=== PATIENT | male | born 1960 | race Caucasian/White ===

== ENCOUNTER 2019-03-29 15:19 | Observation (INO) | payer SELFPAY ==
[~2019-03-29] VITALS: Ht 180.3 cm; Wt 77.6 kg
[~2019-03-29 15:19] MED LIST: HYDR-3165 PO
[2019-03-29] MEDS ORDERED: THIAMINE 200 MG/2 ML VIAL. IV ONE (15:35)
[2019-03-29] MEDS ORDERED: FOLIC ACID 5 MG/ML SYRINGE for ER IV ONE (15:36)
--- NOTE | 2019-03-29 15:39 | EKG ---
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
[2019-03-29] MEDS ORDERED: ASPIRIN 81 MG TAB.CHEW ONE (15:40)
--- NOTE | 2019-03-29 15:41 | PHYS DOC ---
Past History Past Medical History: Hypertension, Other Additional Past Medical Histor: [place] in his 20s secondary to cocaine Past Surgical History: No Surgical History Smoking: Cigarettes, Greater than 1 pack/day Alcohol Use: Heavy Drug Use: None Adult General Chief Complaint Chief Complaint: CHEST PAIN HPI HPI Patient is a 58-year-old male complaining of chest pain that started approximately an hour prior to arrival. Also right sided upper abdomen and chest discomfort on the right side as well. Worse with exertion as well as deep breath. Patient has recently been on an alcohol binge as well. That has been going on for the past 3 months. Last drink of alcohol was sometime last night. Patient feels that he is going through withdrawal from this as well. Chest discomfort is moderate to severe. No nausea or vomiting. No diarrhea. Discomfort is similar to when he had a heart attack due to cocaine use wall he was in his 20s. Patient denies using any drugs of abuse. His other history is significant for smoking as well as hypertension.[] Review of Systems Review of Systems Constitutional: Denies fever or chills [] Eyes: Denies change in visual acuity, redness, or eye pain [] HENT: Denies nasal congestion or sore throat [] Respiratory: Denies cough or shortness of breath [] Cardiovascular: No additional information not addressed in HPI [] GI: See history of present illness[] : Denies dysuria or hematuria [] Musculoskeletal: Denies back pain or joint pain [] Integument: Denies rash or skin lesions [] Neurologic: Denies headache, focal weakness or sensory changes [] Endocrine: Denies polyuria or polydipsia [] All other systems were reviewed and found to be within normal limits, except as documented in this note. Current Medications Current Medications Current Medications Medications (Trade) Dose Ordered Sig/Kirti Start Time Stop Time Status Last Admin Dose Admin Aspirin (Children'S Aspirin) 324 mg 1X ONCE 03/29/19 15:45 03/29/19 15:46 UNV Lorazepam (Ativan Inj) 2 mg 1X ONCE 03/29/19 15:45 03/29/19 15:46 UNV Multivitamins/ Minerals 10 ml/ Folic Acid 1 mg/ Thiamine HCl 100 mg/Magnesium Sulfate 2 gm/ Lactated Ringer's 1,015.2 ml @ 1,011.2 mls/hr 1X ONCE 03/29/19 15:45 03/29/19 16:45 UNV Allergies Allergies Allergies Coded Allergies Type Severity Reaction Last Updated Verified No Known Drug Allergies 03/22/16 No Physical Exam Physical Exam Constitutional: Well developed, well nourished, no acute distress, non-toxic appearance. [] HENT: Normocephalic, atraumatic, bilateral external ears normal, oropharynx moist, no oral exudates, nose normal. [] Eyes: PERRLA, EOMI, conjunctiva normal, no discharge. [] Neck: Normal range of motion, no tenderness, supple, no stridor. [] Cardiovascular:Heart rate is tachycardic with a regular rhythm, no murmur [] Lungs & Thorax: Bilateral breath sounds clear to auscultation [] Abdomen: Bowel sounds normal, soft, no tenderness, no rebound, no guarding, no rigidity, able to sit up and lie back without any difficulty. No Khoury's point tenderness, no McBurney's point tenderness. No masses, no pulsatile masses. [] Skin: Warm, dry, no erythema, no rash. [] Back: No tenderness, no CVA tenderness. [] Extremities: No tenderness, no cyanosis, no clubbing, ROM intact, no edema. [] Neurologic: Alert and oriented X 3, normal motor function, normal sensory function, no focal deficits noted. [] Psychologic: Affect anxious with increased word density, judgement normal, mood normal. [] EKG EKG EKG shows a sinus tachycardia at 128 bpm, left axis deviation, QTC 426 ms, no ST elevations. Interpreted by me at 1527[] Radiology/Procedures Radiology/Procedures PROCEDURE: PORTABLE CHEST 1V PORTABLE CHEST 1V History: Chest pain Comparison: None. Findings: Single view of the chest is submitted. There may be emphysema. There is no lobar consolidation, pleural fluid, pneumothorax. Heart size is within normal limits. There is a somewhat tortuous thoracic aorta. There is multilevel deformity of the left lateral ribs likely sequela of old trauma. Impression: 1. There is no significant infiltrate. There may be emphysema.[] Course & Med Decision Making Course & Med Decision Making Pertinent Labs and Imaging studies reviewed. (See chart for details) ED course: Patient arrived, was placed in bed, and tolerated exam well. Patient's heart rate improved with IV fluids. His tremor improved with Ativan. After the return of laboratory and imaging studies, these were discussed with the patient who voiced understanding. Consultation was made with the hospitalist who graciously accepted him for admission. He was admitted in improved condition. Cari decision makin-year-old male with a history of hypertension and pre vious coronary disease due to a cane abuse. Patient's initial set of cardiac enzymes are negative however, admitting him for chest pain rule out protocol. Patient also under going alcohol withdrawal. Being admitted to help with the initial stages of the withdrawal process. There is no evidence of pneumonia, pneumothorax, pulmonary embolism, nor significant acute electrolyte abnormality. No evidence of esophageal rupture nor dissecting thoracic aneurysm[] Dragon Disclaimer Dragon Disclaimer This electronic medical record was generated, in whole or in part, using a voice recognition dictation system. Departure Departure: Impression: Primary Impression: Chest pain, unspecified Additional Impression: Alcohol withdrawal Disposition: ADMITTED INPATIENT Admitting Physician: Jay Saeed Condition: IMPROVED Referrals: BRIE MAYFIELD (PCP) Problem Qualifiers Primary Impression: Chest pain, unspecified Chest pain type: unspecified Qualified Codes: R07.9 - Chest pain, unspecified Additional Impression: Alcohol withdrawal Complication of substance-induced condition: with unspecified complication Qualified Codes: F10.239 - Alcohol dependence with withdrawal, unspecified PAU MARIE DO Mar 29, 2019 15:41
[2019-03-29] MEDS ORDERED: IV NORMAL SALINE 1,000ML 1,000 ML IV ONE (15:45)
[2019-03-29] MEDS ORDERED: ASPIRIN 81 MG TAB.CHEW PO ONE (15:45)
[2019-03-29] MEDS ORDERED: MVI, ADULT NO.4 WITH VIT K 10 ML, FOLIC ACID SYRINGE for ER 1 MG, THIAMINE INJ 100 MG, ... IV ONE ×5 (15:45)
[2019-03-29 15:55] LABS: BASO % 0 % (0-3); EOS % 0 % (0-3); HEMOGLOBIN 16.1 g/dL (13.0-17.5); LYMPH # 1.6 x10^3/uL (1.0-4.8); LYMPH % 16 % (24-48); MEAN CORPUSCULAR HEMOGLOBIN 33 pg (25-35); MEAN CORPUSCULAR HGB CONC 34 g/dL (31-37); MEAN CORPUSCULAR VOLUME 97 fL (79-100); MONO # 0.6 x10^3/uL (0.0-1.1); MONO % 7 % (0-9); NEUT # 7.4 x10^3uL (1.8-7.7); NEUT % 77 % (31-73); PLATELET COUNT 186 x10^3/uL (140-400); RED BLOOD COUNT 4.93 x10^6/uL (4.30-5.70); RED CELL DISTRIBUTION WIDTH 15.6 % (11.5-14.5); WHITE BLOOD COUNT 9.7 x10^3/uL (4.0-11.0)
--- NOTE | 2019-03-29 16:02 | RAD ---
PORTABLE CHEST 1V History: Chest pain Comparison: None. Findings: Single view of the chest is submitted. There may be emphysema. There is no lobar consolidation, pleural fluid, pneumothorax. Heart size is within normal limits. There is a somewhat tortuous thoracic aorta. There is multilevel deformity of the left lateral ribs likely sequela of old trauma. Impression: 1. There is no significant infiltrate. There may be emphysema. Electronically signed by: Usman Hampton MD (03/29/2019 3:59 PM) [facility] [place]
[2019-03-29 16:14] LABS: ALBUMIN 4.3 g/dL (3.4-5.0); CREATININE 1.1 mg/dL (0.7-1.3); GFR 68.8; POTASSIUM 4.3 mmol/L (3.5-5.1); TOTAL BILIRUBIN 1.4 mg/dL (0.2-1.0); TOTAL PROTEIN 8.6 g/dL (6.4-8.2)
[2019-03-29 16:22] LABS: HYPERSEGS PRESENT; PLATELET CLUMP PRESENT; PLT ESTIMATE ADEQUATE (ADEQUATE)
[2019-03-29 16:51] LABS: BARBITURATES NEG (NEG); BENZODIAZEPINES NEG (NEG); CANNABINOIDS NEG (NEG); COCAINE NEG (NEG); METHADONE NEG (NEG); OPIATES NEG (NEG); PHENCYCLIDINE NEG (NEG)
[2019-03-29 16:55] LABS: BILIRUBIN,URINE NEG (NEG); CLARITY,URINE CLEAR; COLOR,URINE YELLOW; GLUCOSE,URINE NEG (NEG); NITRITE,URINE NEG (NEG); UROBILINOGEN,URINE 1 mg/dL (0.2 mg/dL)
[2019-03-29 16:56] LABS: BACTERIA,URINE 0 /HPF (0-FEW); GRANULAR CASTS,URINE OCC /HPF; HYALINE CASTS, URINE OCC /HPF; RBC,URINE OCC /HPF (0-2); SQUAMOUS EPITHELIAL CELL,UR OCC /LPF; WBC,URINE OCC /HPF (0-4)
[2019-03-29 16:57] LABS: AMPHETAMINE/METHAMPHETAMINE NEG (NEG)
[2019-03-29] MEDS ORDERED: ACETAMINOPHEN 325 MG TABLET PO PRN (17:45)
[2019-03-29] MEDS ORDERED: NITROGLYCERIN SUBLINGUAL 0.4 MG BOTTLE OF 25. SL PRN (17:45)
[2019-03-29] MEDS ORDERED: chlordiazePOXIDE HCL 25 MG CAPSULE PO PRN ×2 (17:45)
[2019-03-29] MEDS ORDERED: ONDANSETRON PF 4 MG/2 ML VIAL. IV PRN (17:45)
[2019-03-29 18:50] VITALS: BP 157/96
[2019-03-29] MEDS ORDERED: diphenhydrAMINE 50 MG/ML VIAL IVP PRN (19:30)
[2019-03-29] MEDS ORDERED: HALOPERIDOL LACT 5 MG/ML VIAL. IM PRN (19:30)
[2019-03-29] MEDS ORDERED: cloNIDine HCL 0.1 MG TABLET PO PRN (19:30)
[2019-03-29] MEDS: IV NORMAL SALINE 1,000ML 1,000 ML IV SCH (19:57)
[2019-03-29] MEDS ORDERED: LISI-334 PO (21:18)
[2019-03-29 22:23] VITALS: BP 169/90
[2019-03-30] MEDS: IV NORMAL SALINE 1,000ML 1,000 ML IV SCH (03:56)
[2019-03-30 05:11] VITALS: BP 167/98
--- NOTE | 2019-03-30 10:51 | CONS ---
DATE OF CONSULTATION: REASON FOR CONSULTATION: Chest pain. CONSULTING PHYSICIAN: Dr. Saeed. HISTORY OF PRESENT ILLNESS: The patient is an unfortunate 58-year-old man with history of alcohol abuse, who presents to the hospital in the setting of various complaints including abdominal pain, chest pain and anxiety. Cardiology was asked to evaluate him for his chest pain. He has alcohol abuse in the records dating all the way back to 2016. Previous EKGs have been unremarkable. Upon arrival to the hospital, his EKG was unremarkable and he was slightly hypertensive. He also felt that he may be withdrawing. He was admitted for further evaluation and treatment. In speaking with him today, he was quite upset that I had woken him up from his sleep to examine him. He denies any exertional angina, but does have chronic dyspnea in the setting of tobacco abuse and alcohol abuse. He denies any syncope or palpitations. He stated that he rested well yesterday and actually wants to go home today. PAST MEDICAL HISTORY: Notable for tobacco abuse and alcohol abuse. He also reports he has hypertension and takes lisinopril. ALLERGIES: No known drug allergies. CURRENT CARDIOVASCULAR MEDICATIONS: He is on clonidine as needed for possible withdrawal symptoms. REVIEW OF SYSTEMS: Negative unless otherwise mentioned above in HPI. PHYSICAL EXAMINATION: VITAL SIGNS: Afebrile, pulse 93, respirations 20, blood pressure 166/104, 98% on room air. GENERAL: He is quite erratic and upset. HEAD AND NECK: Grossly normal. EXTREMITIES: No significant lower extremity edema appreciated. 2+ radial pulses. DIAGNOSTIC STUDIES: INR 0.9. Creatinine is 1.1 and troponin 0. Hemoglobin 16.1 and platelet count 186. Chest x-ray is grossly unremarkable. IMPRESSION: At this present time, this appears to be noncardiac chest pain. RECOMMENDATIONS: His cardiac enzymes, EKG are unremarkable. He may be experiencing withdrawal symptoms. Treatment as per primary physician. No further cardiac testing necessary at this time. Discussed smoking and alcohol cessation. Poor long-term prognosis unless he quits alcohol use. Thank you for this consultation. HUYEN MCKEON MD DR: JULIANNA/brandee JOB#: [id number] / [id number] MTDD
[2019-03-30] MEDS ORDERED: LORazepam 1 MG TABLET PO ONE (11:00)
--- NOTE | 2019-03-30 16:31 | HP ---
ADMIT DATE: 03/29/2019 HISTORY OF PRESENT ILLNESS: A 58-year-old gentleman, who came in through the Emergency Room, apparently he has been complaining of right-sided upper abdominal and chest pain. The patient also was worse when he takes a deep breath. The patient has been drinking heavily alcohol, last drink of alcohol sometime within the last night. The patient feels like he is going through withdrawal, chest pain was [id number]. He was admitted for rule out [place] protocol as well as detox from alcohol intoxication. The patient denied any nausea, vomiting or diaphoresis. PAST MEDICAL HISTORY: He has had previous history of heart attack, chest surgery, chest tube, ankle fracture, severe alcohol abuse. He claims he drinks 30 beers a day, tobacco abuse, smoking, smoking exposure as well. FAMILY HISTORY: Mother has cancer. ALLERGIES: No known drug allergies. SOCIAL HISTORY: The patient drinks as noted 30 bottles of beer a day, possible, and a pack of cigarettes a day for the last 40-50 years. HOME MEDICATIONS: Lisinopril 20 mg a day. The patient is a full code. REVIEW OF SYSTEMS: The patient denies any headaches, visual changes, blurred vision, double vision. Denies any melena, hematochezia or hematemesis. Neurologically baseline, stable except for his chest discomfort, which probably is reflux. PHYSICAL EXAMINATION: GENERAL: This is a white male, looking much older than stated age. VITAL SIGNS: Blood pressure 169/90, respiratory rate 20, pulse 88, afebrile. HEENT: The patient's head was atraumatic, normocephalic. Eyes: PERRLA without jaundice. Mouth and throat were normal. NECK: Supple, without JVD, carotid bruits or thyromegaly. LUNGS: Diminished throughout, poor movement of air. CARDIOVASCULAR: Regular sinus rhythm, S1, S2, without murmur, rub, thrill or extra heart sound. ABDOMEN: Soft, diffuse tenderness in the epigastric area. No rebound or guarding. Positive bowel sounds. No hepatosplenomegaly was noted. EXTREMITIES: The patient otherwise had no clubbing, cyanosis or edema. NEUROLOGIC: The patient was alert and oriented, baseline, somewhat ____, slow to talk. Neurologically intact. LABORATORY DATA: Sodium 136, potassium 4.3, BUN and creatinine of 15 and 1.0, total bilirubin elevated at 1.4, ALT 140, AST 95. Troponin negative. Ammonia normal. Lipase normal. TSH normal. CBC basically all within normal limits. The patient otherwise continued to be monitored carefully. The patient will be seen by Dr. Perales, Cardiology and make further evaluation. IMPRESSION: Alcoholism, anemia of chronic disease, hyperbilirubinemia, elevated liver enzymes, tobacco dependence. The patient demanded to be discharged against medical advice. FARHAD REEVES MD DR: PAULINE/brandee JOB#: [id number] / [id number]
[2019-04-03] MEDS ORDERED: FOLIC ACID 1 MG TABLET PO SCH (09:00)
[2019-04-03] MEDS ORDERED: THIAMINE 100 MG TABLET. PO SCH (09:00)
[2019-04-03] MEDS ORDERED: MULTIVITAMIN with MINERAL TABLET. PO SCH (09:00)
--- NOTE | 2019-04-04 08:54 | EKG ---
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
== END 2019-03-30 11:12 | disposition left against medical advice (07) ==
LOC: ER 15:19 → 1 SOUTH 18:32
PROVIDERS: ADMIT Family Medicine; ATTEND Family Medicine
DX: R07.89 Other chest pain (principal); I10 Essential (primary) hypertension; I25.10 Atherosclerotic heart disease of native coronary artery without angina pectoris; F41.9 Anxiety disorder, unspecified; I25.2 Old myocardial infarction; D63.8 Anemia in other chronic diseases classified elsewhere; R74.8 Abnormal levels of other serum enzymes; F10.239 Alcohol dependence with withdrawal, unspecified; E80.6 Other disorders of bilirubin metabolism; F17.210 Nicotine dependence, cigarettes, uncomplicated; Z79.899 Other long term (current) drug therapy; Z71.6 Tobacco abuse counseling
CPT/HCPCS: 36415; 71045; 80053; 80307; 81001; 82140; 83690; 83735; 83880; 84443; 84484; 85025; 85610; 85730; 93005; 96365; 96366; 96375; 96376; 99284; 99406; G0378; G0480; J1200; J2060; J2405; G0379; J7030

== ENCOUNTER 2019-05-06 08:34 | Inpatient (IN) | payer SELFPAY ==
[2019-05-06] VITALS (10 sets, daily range): BP systolic 125–148; BP diastolic 84–101
[~2019-05-06] VITALS: Ht 182.9 cm; Wt 80.5 kg
[~2019-05-06 08:34] MED LIST changes: +LISI-334 PO
[2019-05-06 09:20] LABS: BASO % 1 % (0-3); EOS % 0 % (0-3); HEMATOCRIT 44.6 % (39.0-53.0); HEMOGLOBIN 15.2 g/dL (13.0-17.5); LYMPH # 0.4 x10^3/uL (1.0-4.8); LYMPH % 5 % (24-48); MEAN CORPUSCULAR HEMOGLOBIN 35 pg (25-35); MEAN CORPUSCULAR HGB CONC 34 g/dL (31-37); MEAN CORPUSCULAR VOLUME 101 fL (79-100); MONO % 12 % (0-9); NEUT # 6.8 x10^3uL (1.8-7.7); NEUT % 83 % (31-73); PLATELET COUNT 175 x10^3/uL (140-400); RED BLOOD COUNT 4.41 x10^6/uL (4.30-5.70); RED CELL DISTRIBUTION WIDTH 16.7 % (11.5-14.5); WHITE BLOOD COUNT 8.2 x10^3/uL (4.0-11.0)
[2019-05-06 09:27] LABS: CALCIUM 9.3 mg/dL (8.5-10.1); CREATININE 1.4 mg/dL (0.7-1.3); GFR 52.1; POTASSIUM 4.2 mmol/L (3.5-5.1)
[2019-05-06] MEDS ORDERED: MVI, ADULT NO.4 WITH VIT K 10 ML, FOLIC ACID INJ 1 MG, THIAMINE INJ 100 MG in IV NORMAL... IV ONE ×4 (09:30)
--- NOTE | 2019-05-06 09:30 | PHYS DOC ---
Past History Past Medical History: Hypertension, Other Additional Past Medical Histor: [place] in his 20s secondary to cocaine Past Surgical History: Other Additional Past Surgical Histo: BILATERAL LOWER LEGS Smoking: Cigarettes, Greater than 1 pack/day Alcohol Use: Heavy Drug Use: None Adult General Chief Complaint Chief Complaint: SUICIDAL IDEATION HPI HPI 58-year-old male presents with concern for alcohol withdrawal and suicidal ideation. The patient was recently in this facility and signed out AMA. He had some alcohol about 12 hours ago. Today he is having tremors in his upper extremities. He was headed to drink more alcohol realizes that he needs to stop drinking alcohol and get fully detoxed and into a treatment program. The patient has been having suicidal thoughts about being hopeless and worthless. He is thought about shooting himself with a pistol. He tells me that he has access to a pistol he does not have on his person at this time. The patient has had an alcohol withdrawal seizure many years ago. He is concerned about these tremors and worsening withdrawal symptoms. He lives alone. He has no other complaints this time. Review of Systems Review of Systems Constitutional: Denies fever or chills [] Eyes: Denies change in visual acuity, redness, or eye pain [] HENT: Denies nasal congestion or sore throat [] Respiratory: Denies cough or shortness of breath [] Cardiovascular: No additional information not addressed in HPI [] GI: Denies abdominal pain, nausea, vomiting, bloody stools or diarrhea [] : Denies dysuria or hematuria [] Musculoskeletal: Denies back pain or joint pain [] Integument: Denies rash or skin lesions [] Neurologic: Upper extremity tremors. Denies headache, focal weakness or sensory changes [] Endocrine: Denies polyuria or polydipsia [] All other systems were reviewed and found to be within normal limits, except as documented in this note. Current Medications Current Medications Current Medications Medications (Trade) Dose Ordered Sig/Kirti Start Time Stop Time Status Last Admin Dose Admin Lorazepam (Ativan Inj) 2 mg 1X ONCE 05/06/19 09:30 05/06/19 09:31 UNV Multivitamins/ Minerals 10 ml/ Folic Acid 1 mg/ Thiamine HCl 100 mg/Sodium Chloride 1,011.3 ml @ 1,000.187 mls/hr 1X ONCE 1/7/20 09:30 05/06/19 10:30 UNV Allergies Allergies Allergies Coded Allergies Type Severity Reaction Last Updated Verified No Known Drug Allergies 03/22/16 No Physical Exam Physical Exam Constitutional: Well developed, well nourished, mild acute distress, non-toxic appearance. [] HENT: Normocephalic, atraumatic, bilateral external ears normal, oropharynx moist, no oral exudates, nose normal. [] Eyes: PERRLA, EOMI, conjunctiva normal, no discharge. [] Neck: Normal range of motion, no tenderness, supple, no stridor. [] Cardiovascular: Heart rate 123, regular rhythm, no murmur [] Lungs & Thorax: Bilateral breath sounds clear to auscultation [] Abdomen: Bowel sounds normal, soft, no tenderness, no masses, no pulsatile masses. [] Skin: Warm, dry, no erythema, no rash. [] Back: No tenderness, no CVA tenderness. [] Extremities: No tenderness, no cyanosis, no clubbing, ROM intact, no edema. [] Neurologic: Bilateral upper extremity tremors, involuntary. Alert and oriented X 3, normal motor function, normal sensory function, no focal deficits noted. [] Psychologic: Affect normal, judgement normal, mood anxious. [] Current Patient Data Vital Signs Vital Signs Date Time Temp Pulse Resp B/P (MAP) Pulse Ox O2 Delivery O2 Flow Rate FiO2 05/06/19 08:39 98.6 118 22 95 Room Air Lab Results Laboratory Tests Test 05/06/19 08:57 White Blood Count 8.2 x10^3/uL (4.0-11.0) Red Blood Count 4.41 x10^6/uL (4.30-5.70) Hemoglobin 15.2 g/dL (13.0-17.5) Hematocrit 44.6 % (39.0-53.0) Mean Corpuscular Volume 101 fL (79-100) H Mean Corpuscular Hemoglobin 35 pg (25-35) Mean Corpuscular Hemoglobin Concent 34 g/dL (31-37) Red Cell Distribution Width 16.7 % (11.5-14.5) H Platelet Count 175 x10^3/uL (140-400) Neutrophils (%) (Auto) 83 % (31-73) H Lymphocytes (%) (Auto) 5 % (24-48) L Monocytes (%) (Auto) 12 % (0-9) H Eosinophils (%) (Auto) 0 % (0-3) Basophils (%) (Auto) 1 % (0-3) Neutrophils # (Auto) 6.8 x10^3uL (1.8-7.7) Lymphocytes # (Auto) 0.4 x10^3/uL (1.0-4.8) L Monocytes # (Auto) 1.0 x10^3/uL (0.0-1.1) Eosinophils # (Auto) 0.0 x10^3/uL (0.0-0.7) Basophils # (Auto) 0.0 x10^3/uL (0.0-0.2) EKG EKG [] Radiology/Procedures Radiology/Procedures [] Course & Med Decision Making Course & Med Decision Making Pertinent Labs and Imaging studies reviewed. (See chart for details) The patient's labs are unremarkable. His alcohol is less than 10. He was given 2 mg of Ativan IV followed by 25 mg of Librium by mouth for his withdrawal symptoms. He has been resting comfortably. His tremors have stopped. I spoke with Dr. Cuadra about the patient and he has accepted him for admission for ma nagement of his withdrawal prior to evaluation for a rehabilitation facility. The patient is in agreement with this plan. [] Dragon Disclaimer Dragon Disclaimer This electronic medical record was generated, in whole or in part, using a voice recognition dictation system. Departure Departure: Impression: Primary Impression: Withdrawal symptoms, alcohol Additional Impression: Suicidal ideation Disposition: ADMITTED INPATIENT Admitting Physician: Agnieszka Cuadra Condition: STABLE Referrals: BRIE MAYFIELD (PCP) Problem Qualifiers TORI CHAMPAGNE DO May 06, 2019 09:29
[2019-05-06 09:33] LABS: ALBUMIN 4.6 g/dL (3.4-5.0); ALBUMIN/GLOBULIN RATIO 1.2 (1.0-1.7); TOTAL BILIRUBIN 1.3 mg/dL (0.2-1.0); TOTAL PROTEIN 8.4 g/dL (6.4-8.2)
[2019-05-06] MEDS ORDERED: ONDANSETRON PF 4 MG/2 ML VIAL. IV PRN ×2 (10:45→14:00)
[2019-05-06] MEDS ORDERED: chlordiazePOXIDE HCL 25 MG CAPSULE PO PRN (10:45)
[2019-05-06] MEDS ORDERED: chlordiazePOXIDE HCL 25 MG CAPSULE PO ONE (11:00)
[2019-05-06] MEDS: IV NORMAL SALINE 1,000ML 1,000 ML IV SCH (14:12)
[2019-05-06] MEDS ORDERED: cloNIDine HCL 0.1 MG TABLET PO PRN (14:45)
[2019-05-06] MEDS: NICOTINE 21MG PATCH. TD SCH (15:03)
[2019-05-06] MEDS: chlordiazePOXIDE HCL 25 MG CAPSULE PO PRN (17:55)
[2019-05-07] VITALS (22 sets, daily range): BP systolic 107–165; BP diastolic 59–130
[2019-05-07] MEDS: IV NORMAL SALINE 1,000ML 1,000 ML IV SCH ×2 (00:04→17:42)
--- NOTE | 2019-05-07 00:54 | EKG ---
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
[2019-05-07] MEDS: chlordiazePOXIDE HCL 25 MG CAPSULE PO PRN ×5 (01:05→20:57)
[2019-05-07] MEDS: MVI, ADULT NO.4 WITH VIT K 10 ML, THIAMINE INJ 100 MG, FOLIC ACID INJ 1 MG in IV NORMAL... IV SCH ×4 (09:17)
[2019-05-07] MEDS: NICOTINE 21MG PATCH. TD SCH (09:17)
[2019-05-07 10:50] LABS: BARBITURATES NEG (NEG); BENZODIAZEPINES POS (NEG); CANNABINOIDS NEG (NEG); COCAINE NEG (NEG); METHADONE NEG (NEG); OPIATES NEG (NEG); PHENCYCLIDINE NEG (NEG)
[2019-05-07 10:51] LABS: AMPHETAMINE/METHAMPHETAMINE NEG (NEG)
[2019-05-07 12:11] LABS: BACTERIA,URINE 0 /HPF (0-FEW); BILIRUBIN,URINE NEG (NEG); CLARITY,URINE HAZY; COLOR,URINE YELLOW; GLUCOSE,URINE NEG (NEG); NITRITE,URINE NEG (NEG); SQUAMOUS EPITHELIAL CELL,UR FEW /LPF
[2019-05-07 12:52] LABS: BASO % 1 % (0-3); EOS # 0.1 x10^3/uL (0.0-0.7); EOS % 2 % (0-3); HEMATOCRIT 39.4 % (39.0-53.0); HEMOGLOBIN 13.3 g/dL (13.0-17.5); LYMPH # 0.9 x10^3/uL (1.0-4.8); LYMPH % 14 % (24-48); MEAN CORPUSCULAR HEMOGLOBIN 34 pg (25-35); MEAN CORPUSCULAR HGB CONC 34 g/dL (31-37); MEAN CORPUSCULAR VOLUME 102 fL (79-100); MONO # 0.6 x10^3/uL (0.0-1.1); MONO % 10 % (0-9); NEUT # 4.5 x10^3uL (1.8-7.7); NEUT % 74 % (31-73); PLATELET COUNT 142 x10^3/uL (140-400); RED BLOOD COUNT 3.86 x10^6/uL (4.30-5.70); RED CELL DISTRIBUTION WIDTH 16.1 % (11.5-14.5); WHITE BLOOD COUNT 6.1 x10^3/uL (4.0-11.0)
[2019-05-07 13:08] LABS: ALBUMIN 3.6 g/dL (3.4-5.0); ALBUMIN/GLOBULIN RATIO 1.1 (1.0-1.7); CALCIUM 8.6 mg/dL (8.5-10.1); GFR 76.7; POTASSIUM 4.2 mmol/L (3.5-5.1); TOTAL BILIRUBIN 0.8 mg/dL (0.2-1.0); TOTAL PROTEIN 6.9 g/dL (6.4-8.2)
[2019-05-07] MEDS ORDERED: ZIPRASIDONE IM 20 MG VIAL. IM PRN (15:30)
[2019-05-07] MEDS: HALOPERIDOL LACT 5 MG/ML VIAL. IVP PRN (16:09)
--- NOTE | 2019-05-07 16:41 | HP ---
ADMIT DATE: HISTORY OF PRESENT ILLNESS: The patient is a 58-year-old male patient who came to the Emergency Room with concern for alcohol withdrawal and suicidal ideation. The patient was recently in this facility and signed out against medical advice. He had some alcohol about 12 hours ago and when he arrived, he had tremors in his upper extremities. He was headed to drink more alcohol and realized that he needs to stop drinking alcohol and get fully detoxified into treatment program. He has been having suicidal thoughts being ____. He thought about shooting himself with a pistol. He tells me that he has access to ____ at this time. He had alcohol withdrawal with seizures many years ago. He is concerned about these tremors and worsening withdrawal symptoms. He lives alone. He was evaluated in the Emergency Room and his lab work showed some abnormal liver enzymes and slightly dehydration hyponatremia and he was treated with IV fluid and started on banana bag and alcohol withdrawal, admitted for 1:1 observation. PAST MEDICAL HISTORY: Significant for coronary artery disease, status post myocardial infarction. Has chest tube. Severe alcohol abuse, tobacco abuse. FAMILY HISTORY: His mother has cancer. SOCIAL HISTORY: The patient drinks as he stated 30 bottles of beer a day, possible a pack of cigarettes a day for the last 40-50 minutes. MEDICATIONS: He is on lisinopril 20 mg once a day. ALLERGIES: He has no known drug allergies. PHYSICAL EXAMINATION: GENERAL: On arrival to the Emergency Room, he was well-developed, well-nourished, in mild acute distress. There is no pallor, jaundice, cyanosis or thyromegaly. No jugular venous distention. No limb edema. VITAL SIGNS: His heart rate was 118, blood pressure was 183/115, temperature was 98.6, respiratory rate was 22 and oxygen saturation was 95%. HEAD, EYES, EARS, NOSE AND THROAT: Showed that he is normocephalic, atraumatic. NECK: Supple. HEART: Showed normal first and second heart sounds. No gallop or murmur. CHEST: Clear to auscultation. No crepitation or rhonchi. ABDOMEN: Distended, soft, nontender. NEUROLOGIC: He apparently was very tremulous, alert, oriented without any obvious lateralizing sign. LABORATORY DATA: In the Emergency Room, he has had lab work including a CBC with a white cell count of 8200, hemoglobin 15, hematocrit 44, MCV 101 and platelet count 175,000. His chemistry showed a serum sodium 133, potassium 4.2, chloride 98, bicarbonate 24, anion gap of 11, BUN 23, creatinine 1.4, estimated GFR was 52 mL per minute, his glucose 177, calcium was 9.3. Total bilirubin, AST and ALT were elevated. Alkaline phosphatase was normal. His total protein was 8.4, albumin was 4.6. His urinalysis was essentially unremarkable. The urine was yellow, hazy with a pH of 6.5, specific gravity of 1.020. The urine was negative for protein, glucose, ketones, blood, nitrite and leukocyte esterase, 3-5 rbc's, 11-20 wbc's, and no bacteria. His toxic screen was positive for benzodiazepine. His blood alcohol level was less than 2 mg. In summary, this is a 58-year-old male patient who was admitted with alcohol withdrawal symptoms as well as suicidal ideation. The plan is to continue with alcohol withdrawal protocol. We have consulted the [facility] for admission to alcohol detoxification program. LINDSAY AN MD DR: MARLA/brandee JOB#: [id number] / [id number]
[2019-05-08] VITALS (11 sets, daily range): BP systolic 115–146; BP diastolic 69–91
[2019-05-08] MEDS: chlordiazePOXIDE HCL 25 MG CAPSULE PO PRN ×2 (00:55→03:44)
[2019-05-08] MEDS: HALOPERIDOL LACT 5 MG/ML VIAL. IVP PRN ×2 (01:29→07:39)
--- NOTE | 2019-05-08 02:00 | PN ---
DATE: 05/07/2019 SUBJECTIVE: The patient continued to be agitated, continued to be tremulous, very restless, disrespectful to the staffing nurse and today his parents also, threatening to drive to go home, driving his own, though he is very unsteady on his feet. I had a lengthy discussion with him that he will never be able to drive on his own from here and that the [facility] has already made arrangements for him to be admitted to [facility] and that he came to us asking for help and we are willing to help him as long as he is willing to help himself. PHYSICAL EXAMINATION: GENERAL: When I examined him this afternoon, he looked well and was clearly in no apparent respiratory distress. No pallor, jaundice, cyanosis or thyromegaly. No jugular venous distension. No lower limb edema. VITAL SIGNS: His heart rate was 86, blood pressure 138/90, temperature 98.6, respiratory rate 20, and oxygen saturation was 96%. The rest of clinical exam is stable. PLAN: To continue with alcohol withdrawal protocol. Hopefully, will be more stable tomorrow and we can transfer him to [facility] to continue the process of rehabilitation there. LINDSAY AN MD DR: MARLA/brandee JOB#: [id number] / [id number]
[2019-05-08] MEDS: IV NORMAL SALINE 1,000ML 1,000 ML IV SCH (05:10)
[2019-05-08] MEDS: MVI, ADULT NO.4 WITH VIT K 10 ML, THIAMINE INJ 100 MG, FOLIC ACID INJ 1 MG in IV NORMAL... IV SCH ×4 (07:51)
[2019-05-08 08:32] LABS: ALBUMIN 3.3 g/dL (3.4-5.0); ALBUMIN/GLOBULIN RATIO 1.1 (1.0-1.7); CALCIUM 8.3 mg/dL (8.5-10.1); CREATININE 0.9 mg/dL (0.7-1.3); GFR 86.7; POTASSIUM 3.8 mmol/L (3.5-5.1); TOTAL BILIRUBIN 0.6 mg/dL (0.2-1.0); TOTAL PROTEIN 6.4 g/dL (6.4-8.2)
== END 2019-05-08 10:50 | disposition left against medical advice (07) | DRG 641 ==
LOC: ER 08:34 → ICU 13:26
PROVIDERS: ADMIT Internal Medicine; ATTEND Internal Medicine
DX: E87.1 Hypo-osmolality and hyponatremia (principal); R45.851 Suicidal ideations; E86.0 Dehydration; I10 Essential (primary) hypertension; I25.10 Atherosclerotic heart disease of native coronary artery without angina pectoris; I25.2 Old myocardial infarction; Z80.9 Family history of malignant neoplasm, unspecified; Z87.891 Personal history of nicotine dependence; F10.20 Alcohol dependence, uncomplicated; Y90.0 Blood alcohol level of less than 20 mg/100 ml; Z53.29 Procedure and treatment not carried out because of patient's decision for other reasons
CPT/HCPCS: 36415; 80053; 80307; 81001; 83735; 84484; 85025; 87086; 93005; 96365; 96366; 96375; G0480; J1630; J2060; 99285-25; J7030

== ENCOUNTER 2019-05-09 12:15 | Emergency (ER) | payer SELFPAY ==
[~2019-05-09] VITALS: Ht 182.9 cm; Wt 80.3 kg
--- NOTE | 2019-05-09 12:32 | PHYS DOC ---
Past History Past Medical History: Hypertension, Other Additional Past Medical Histor: [place] in his 20s secondary to cocaine Past Surgical History: Other Additional Past Surgical Histo: BILATERAL LOWER LEGS Smoking: Cigarettes, Greater than 1 pack/day Alcohol Use: Heavy Additional Alcohol Information: LAST DRINK 3 DAYS AGO Drug Use: None Adult General Chief Complaint Chief Complaint: CHEST PAIN HPI HPI 58-year-old male presents via EMS with chest pain. The patient was just discharged from this hospital yesterday. He was seen and admitted a few days before that as well. The patient is an alcoholic. He states that he has not had a drink in 3 days because of some hospital. He is concerned about withdrawal, but he was treated for withdrawal while in the hospital. Today, he was having a purulent with his landlord answered had chest pains. He called an ambulance. He tells me that he had chest pains last night as well as today. They're intermittent. They're mild to moderate in intensity. He denies shortness of breath. Review of Systems Review of Systems Constitutional: Denies fever or chills [] Eyes: Denies change in visual acuity, redness, or eye pain [] HENT: Denies nasal congestion or sore throat [] Respiratory: Denies cough or shortness of breath [] Cardiovascular: No additional information not addressed in HPI [] GI: Denies abdominal pain, nausea, vomiting, bloody stools or diarrhea [] : Denies dysuria or hematuria [] Musculoskeletal: Denies back pain or joint pain [] Integument: Denies rash or skin lesions [] Neurologic: Hand tremors. Denies headache, focal weakness or sensory changes [] Endocrine: Denies polyuria or polydipsia [] All other systems were reviewed and found to be within normal limits, except as documented in this note. Allergies Allergies Allergies Coded Allergies Type Severity Reaction Last Updated Verified No Known Drug Allergies 03/22/16 No Physical Exam Physical Exam Constitutional: Well developed, well nourished, no acute distress, non-toxic appearance. [] HENT: Normocephalic, atraumatic, bilateral external ears normal, oropharynx moist, no oral exudates, nose normal. [] Eyes: PERRLA, EOMI, conjunctiva normal, no discharge. [] Neck: Normal range of motion, no tenderness, supple, no stridor. [] Cardiovascular:Heart rate regular rhythm, no murmur [] Lungs & Thorax: Bilateral breath sounds clear to auscultation [] Abdomen: Bowel sounds normal, soft, no tenderness, no masses, no pulsatile masses. [] Skin: Warm, dry, no erythema, no rash. [] Back: No tenderness, no CVA tenderness. [] Extremities: No tenderness, no cyanosis, no clubbing, ROM intact, no edema. [] Neurologic: Possible mild tremor in the bilateral upper extremities, though cannot rule out voluntary shaking. Alert and oriented X 3, normal sensory function, no focal deficits noted. [] Psychologic: Affect normal, judgement normal, mood anxious. [] Current Patient Data Vital Signs Vital Signs Date Time Temp Pulse Resp B/P (MAP) Pulse Ox O2 Delivery O2 Flow Rate FiO2 05/09/19 12:20 98.2 91 18 97 Room Air EKG EKG Sinus rhythm, rate 85, normal axis, no ST elevations or depressions.[] Radiology/Procedures Radiology/Procedures [] Impressions: CHEST AP ONLY History: Chest pain Comparison: March 29, 2019 Findings: Single view of the chest is submitted. There is no infiltrate, pneumothorax, or effusion. The pericardial cardiac silhouette is within normal limits in size. There are again multiple old left rib fractures. Impression: 1. There is no radiographic evidence of acute cardiopulmonary disease. Electronically signed by: Man Lyn MD (05/09/2019 12:47 PM) [id number] DICTATED AND SIGNED BY: MAN LYN MD DATE: 05/09/19 1247 CC: TORI CHAMPAGNE DO; BRIE MAYFIELD ~ Course & Med Decision Making Course & Med Decision Making Pertinent Labs and Imaging studies reviewed. (See chart for details) The patient's alcohol was less than 10. His other labs are essentially unremarkable. I have given him 2 mg of Ativan and 25mg of benadryl for his shaking. EKG is unremarkable. His chest x-ray is negative for acute findings. The patient's labs are unremarkable. His drug screen did show benzos in his system. This should help manage his potential withdrawal including the dose that I gave him. He does not need to be admitted for any medical reason. Do not have objective evidence of withdrawal. He is stable for discharge at this time. [] Dragon Disclaimer Dragon Disclaimer This electronic medical record was generated, in whole or in part, using a voice recognition dictation system. The HEART Score for CP Pts HEART Score for Chest Pain: HEART Score for Chest Pain Response (Comments) Value History Slighlty/Non-Suspicious 0 ECG Normal 0 Age >45 - < 65 1 Risk Factors 1 or 2 Risk Factors 1 Troponin < Normal Limit 0 Total 2 Risk Factors: Risk Factors: DM, Current or recent (<one month) smoker, HTN, HLP, family history of CAD, obesity. Risk Scores: Score 0 - 3: 2.5% MACE over next 6 weeks - Discharge Home Score 4 - 6: 20.3% MACE over next 6 weeks - Admit for Clinical Observation Score 7 - 10: 72.7% MACE over next 6 weeks - Early Invasive Strategies Departure Departure: Impression: Primary Impression: Chest pain Additional Impression: Drug-seeking behavior Disposition: HOME, SELF-CARE Condition: STABLE Referrals: BRIE MAYFIELD (PCP) Patient Instructions: Chest Pain (Nonspecific), [id number] Problem Qualifiers Primary Impression: Chest pain Chest pain type: other chest pain Qualified Codes: R07.89 - Other chest pain TORI CHAMPAGNE DO May 09, 2019 12:32
--- NOTE | 2019-05-09 12:50 | RAD ---
CHEST AP ONLY History: Chest pain Comparison: March 29, 2019 Findings: Single view of the chest is submitted. There is no infiltrate, pneumothorax, or effusion. The pericardial cardiac silhouette is within normal limits in size. There are again multiple old left rib fractures. Impression: 1. There is no radiographic evidence of acute cardiopulmonary disease. Electronically signed by: Usman Hampton MD (05/09/2019 12:47 PM) [facility]
[2019-05-09 13:12] LABS: BASO % 1 % (0-3); EOS # 0.1 x10^3/uL (0.0-0.7); EOS % 1 % (0-3); HEMATOCRIT 35.8 % (39.0-53.0); HEMOGLOBIN 12.3 g/dL (13.0-17.5); LYMPH # 0.8 x10^3/uL (1.0-4.8); LYMPH % 15 % (24-48); MEAN CORPUSCULAR HEMOGLOBIN 35 pg (25-35); MEAN CORPUSCULAR HGB CONC 34 g/dL (31-37); MEAN CORPUSCULAR VOLUME 101 fL (79-100); MONO # 0.5 x10^3/uL (0.0-1.1); MONO % 11 % (0-9); NEUT # 3.7 x10^3uL (1.8-7.7); NEUT % 72 % (31-73); PLATELET COUNT 152 x10^3/uL (140-400); RED BLOOD COUNT 3.56 x10^6/uL (4.30-5.70); RED CELL DISTRIBUTION WIDTH 15.8 % (11.5-14.5); WHITE BLOOD COUNT 5.2 x10^3/uL (4.0-11.0)
[2019-05-09 13:24] LABS: CALCIUM 8.8 mg/dL (8.5-10.1); GFR 76.7; POTASSIUM 3.5 mmol/L (3.5-5.1)
[2019-05-09 13:27] LABS: AMPHETAMINE/METHAMPHETAMINE NEG (NEG); BARBITURATES NEG (NEG); BENZODIAZEPINES POS (NEG); CANNABINOIDS NEG (NEG); COCAINE NEG (NEG); METHADONE NEG (NEG); OPIATES NEG (NEG); PHENCYCLIDINE NEG (NEG)
[2019-05-09 13:28] LABS: ALBUMIN 3.5 g/dL (3.4-5.0); ALBUMIN/GLOBULIN RATIO 1.1 (1.0-1.7); TOTAL BILIRUBIN 0.3 mg/dL (0.2-1.0); TOTAL PROTEIN 6.7 g/dL (6.4-8.2)
[2019-05-09] MEDS ORDERED: diphenhydrAMINE 50 MG/ML VIAL IVP ONE (13:30)
[2019-05-09 13:32] LABS: BACTERIA,URINE 0 /HPF (0-FEW); BILIRUBIN,URINE NEG (NEG); CLARITY,URINE CLEAR; COLOR,URINE YELLOW; GLUCOSE,URINE NEG (NEG); NITRITE,URINE NEG (NEG); RBC,URINE 0 /HPF (0-2); SQUAMOUS EPITHELIAL CELL,UR OCC /LPF; WBC,URINE 0 /HPF (0-4)
[2019-05-09 14:00] VITALS: BP 159/102
--- NOTE | 2019-05-09 14:09 | EKG ---
[address] [address] Test Date: 2019-05-09 Test Time: 12:23:48 Pat Name: SAUMYA MENDOZA Department: Room: Gender: M [employer]: : [id number] Requested By: TORI CHAMPAGNE Order Number: [id number] Reading MD: Measurements Intervals [place] Rate: 85 P: 47 IN: 164 QRS: -26 QRSD: 92 T: 49 QT: 356 QTc: 429 Interpretive Statements SINUS RHYTHM LEFTWARD AXIS QRS(T) CONTOUR ABNORMALITY CONSIDER ANTEROSEPTAL MYOCARDIAL DAMAGE POSSIBLY ABNORMAL ECG RI6.01 No previous ECG available for comparison
== END 2019-05-09 14:11 | disposition home or self-care (01) ==
LOC: ER 12:15
DX: R07.89 Other chest pain (principal); Z76.5 Malingerer [conscious simulation]; I10 Essential (primary) hypertension; F17.210 Nicotine dependence, cigarettes, uncomplicated
CPT/HCPCS: 36415; 71045; 80053; 80307; 81001; 84484; 85025; 93005; 96374; 96375; 99285; G0480; J1200; J2060

== ENCOUNTER 2019-10-02 15:02 | Emergency (ER) | payer SELFPAY ==
[~2019-10-02] VITALS: Ht 180.3 cm; Wt 82.2 kg
[2019-10-02] MEDS: IV NORMAL SALINE 1,000ML 1,000 ML IV ONE (15:23)
[2019-10-02 15:51] LABS: BASO # 0.1 x10^3/uL (0.0-0.2); BASO % 1 % (0-3); EOS % 0 % (0-3); HEMATOCRIT 43.3 % (39.0-53.0); HEMOGLOBIN 14.8 g/dL (13.0-17.5); LYMPH # 1.4 x10^3/uL (1.0-4.8); LYMPH % 17 % (24-48); MEAN CORPUSCULAR HEMOGLOBIN 33 pg (25-35); MEAN CORPUSCULAR HGB CONC 34 g/dL (31-37); MEAN CORPUSCULAR VOLUME 95 fL (79-100); MONO % 12 % (0-9); NEUT # 5.8 x10^3uL (1.8-7.7); NEUT % 70 % (31-73); PLATELET COUNT 241 x10^3/uL (140-400); RED BLOOD COUNT 4.54 x10^6/uL (4.30-5.70); RED CELL DISTRIBUTION WIDTH 14.9 % (11.5-14.5); WHITE BLOOD COUNT 8.3 x10^3/uL (4.0-11.0)
[2019-10-02 16:03] LABS: CREATININE 1.1 mg/dL (0.7-1.3); GFR 68.5; MAGNESIUM 2.1 mg/dL (1.8-2.4); TOTAL BILIRUBIN 0.6 mg/dL (0.2-1.0); TOTAL PROTEIN 8.1 g/dL (6.4-8.2)
[2019-10-02] MEDS: POTASSIUM CHLORIDE 20 MEQ TABLET.ER. PO ONE (16:26)
--- NOTE | 2019-10-02 16:31 | PHYS DOC ---
Past History Past Medical History: Alcoholism, Hypertension, Other Additional Past Medical Histor: [place] in his 20s secondary to cocaine Past Surgical History: Other Additional Past Surgical Histo: BILATERAL LOWER LEGS Smoking: Cigarettes, Greater than 1 pack/day Alcohol Use: Heavy Drug Use: None Social History Narrative: denies current use General Adult EDM: Chief Complaint: WITHDRAWAL HPI: HPI: Patient is a 59-year-old male who presented to ER today for evaluation of alcohol withdrawal. Patient said he has been binge drinking for about 3 weeks, decided to stop drinking last night. This morning he did have the shake and anxiety, not able to control at home so he came here for evaluation. Patient denies suicidal ideation, denies homicidal ideation. Patient said he had this problem before, he was low on a pink drinking for several weeks and then he would go into withdrawal. She denies any abdominal pain, no nausea vomiting. Patient denies any headache, no neck pain, no chest pain, no trouble breathing. Patient denies being exposed to anybody who tested positive for coronavirus. Review of Systems: Review of Systems: Constitutional: Denies fever or chills Eyes: Denies change in visual acuity HENT: Denies nasal congestion or sore throat Respiratory: Denies cough or shortness of breath Cardiovascular: Denies chest pain or edema GI: Denies abdominal pain, nausea, vomiting, bloody stools or diarrhea : Denies dysuria Musculoskeletal: Denies back pain or joint pain Integument: Denies rash Neurologic: Denies headache, focal weakness or sensory changes Endocrine: Denies polyuria or polydipsia Lymphatic: Denies swollen glands Psychiatric: Denies depression, positive for anxiety and shakiness. Heart Score: Risk Factors: Risk Factors: DM, Current or recent (<one month) smoker, HTN, HLP, family history of CAD, obesity. Risk Scores: Score 0 - 3: 2.5% MACE over next 6 weeks - Discharge Home Score 4 - 6: 20.3% MACE over next 6 weeks - Admit for Clinical Observation Score 7 - 10: 72.7% MACE over next 6 weeks - Early Invasive Strategies Current Medications: Current Meds: Current Medications Medications (Trade) Dose Ordered Sig/Kirti Start Time Stop Time Status Last Admin Dose Admin Lorazepam (Ativan Inj) 2 mg STK-MED ONCE 10/02/19 15:16 10/02/19 15:16 DC Potassium Chloride (Klor-Con) 80 meq 1X ONCE 10/02/19 16:15 10/02/19 16:16 DC Sodium Chloride 1,000 ml @ 1,000 mls/hr 1X ONCE 10/02/19 15:15 10/02/19 16:15 DC 10/02/19 15:23 1,000 MLS/HR Allergies: Allergies: Allergies Coded Allergies Type Severity Reaction Last Updated Verified No Known Drug Allergies 10/02/19 No Physical Exam: PE: Constitutional: Well developed, well nourished, no acute distress, non-toxic appearance. [] HENT: Normocephalic, atraumatic, bilateral external ears normal, oropharynx moist, no oral exudates, nose normal. [] Eyes: PERRLA, EOMI, conjunctiva normal, no discharge. [] Neck: Normal range of motion, no tenderness, supple, no stridor. [] Cardiovascular: Sinus tachycardia, regular rhythm, no murmur [] Lungs & Thorax: Bilateral breath sounds clear to auscultation [] Abdomen: Bowel sounds normal, soft, no tenderness, no masses, no pulsatile masses. [] Skin: Warm, dry, no erythema, no rash. [] Back: No tenderness, no CVA tenderness. [] Extremities: No tenderness, no cyanosis, no clubbing, ROM intact, no edema. [] Neurologic: Alert and oriented X 3, normal motor function, normal sensory function, no focal deficits noted. [] Psychologic: Affect normal, judgement normal, mood normal. [] Appeared anxious and shaky with tremor. Current Patient Data: Labs: Laboratory Tests Test 10/02/19 15:40 White Blood Count 8.3 x10^3/uL (4.0-11.0) Red Blood Count 4.54 x10^6/uL (4.30-5.70) Hemoglobin 14.8 g/dL (13.0-17.5) Hematocrit 43.3 % (39.0-53.0) Mean Corpuscular Volume 95 fL (79-100) Mean Corpuscular Hemoglobin 33 pg (25-35) Mean Corpuscular Hemoglobin Concent 34 g/dL (31-37) Red Cell Distribution Width 14.9 % (11.5-14.5) H Platelet Count 241 x10^3/uL (140-400) Neutrophils (%) (Auto) 70 % (31-73) Lymphocytes (%) (Auto) 17 % (24-48) L Monocytes (%) (Auto) 12 % (0-9) H Eosinophils (%) (Auto) 0 % (0-3) Basophils (%) (Auto) 1 % (0-3) Neutrophils # (Auto) 5.8 x10^3uL (1.8-7.7) Lymphocytes # (Auto) 1.4 x10^3/uL (1.0-4.8) Monocytes # (Auto) 1.0 x10^3/uL (0.0-1.1) Eosinophils # (Auto) 0.0 x10^3/uL (0.0-0.7) Basophils # (Auto) 0.1 x10^3/uL (0.0-0.2) Sodium Level 132 mmol/L (136-145) L Potassium Level 2.7 mmol/L (3.5-5.1) *L Chloride Level 94 mmol/L (98-107) L Carbon Dioxide Level 27 mmol/L (21-32) Anion Gap 11 (6-14) Blood Urea Nitrogen 18 mg/dL (8-26) Creatinine 1.1 mg/dL (0.7-1.3) Estimated GFR (Cockcroft-Gault) 68.5 BUN/Creatinine Ratio 16 (6-20) Glucose Level 84 mg/dL (70-99) Calcium Level 9.0 mg/dL (8.5-10.1) Magnesium Level 2.1 mg/dL (1.8-2.4) Total Bilirubin 0.6 mg/dL (0.2-1.0) Aspartate Amino Transferase (AST) 32 U/L (15-37) Alanine Aminotransferase (ALT) 77 U/L (16-63) H Alkaline Phosphatase 69 U/L (46-116) Total Protein 8.1 g/dL (6.4-8.2) Albumin 4.0 g/dL (3.4-5.0) Albumin/Globulin Ratio 1.0 (1.0-1.7) Ethyl Alcohol Level 17 mg/dL (0-10) H Vital Signs: Vital Signs Date Time Temp Pulse Resp B/P (MAP) Pulse Ox O2 Delivery O2 Flow Rate FiO2 10/02/19 15:05 98.8 106 20 194/97 (129) 95 Room Air EKG: EKG: [] Radiology/Procedures: Radiology/Procedures: [] Course & Med Decision Making: Course & Med Decision Making Pertinent Labs and Imaging studies reviewed. (See chart for details) Patient is a 59-year-old male who was treated in the ER today due to alcohol withdrawal. Patient denies suicidal ideation. Patient was given IV fluid, 2 mg of Ativan IV, patient felt much better. Patient also found to have hypokalemia, his potassium level was 2.7. Patient was given 80 mEq of potassium p.o. patient will be discharged home with a prescription for some Ativan for him to take at home as needed for anxiety and alcohol withdrawal symptoms. Patient was advised, counseled about alcohol cessation. Dragon Disclaimer: Dragon Disclaimer: This electronic medical record was generated, in whole or in part, using a voice recognition dictation system. Departure Departure: Impression: Primary Impression: Alcohol withdrawal Additional Impression: Hypokalemia Disposition: HOME/RESIDENCE PRIOR TO ADM Condition: STABLE Referrals: BRIE MAYFIELD (PCP) please follow up with your doctor as needed next week Patient Instructions: Alcohol Withdrawal Additional Instructions: Thank you for visiting our Emergency Department. We appreciate you trusting us with your care. If any additional problems come up don't hesitate to return to visit us. Please follow up with your primary care provider so they can plan additional care if needed and know about the problem that you had. If symptoms worsen come back to the Emergency Department. Any concerning symptoms that start such as chest pain, shortness of air, weakness or numbness on one side of the body, running high fevers or any other concerning symptoms return to the ER. Please follow-up with your family doctor on Sunday for repeat her potassium level. Scripts Lorazepam (ATIVAN) 0.5 Mg Tablet 0.5 MG PO Q6HRS PRN for ANXIETY / AGITATION, #15 TAB Prov: FARHAD FARMER DO 10/02/19 FARHAD FARMER DO Oct 02, 2019 16:31
[2019-10-02 16:37] LABS: BARBITURATES NEG (NEG); BENZODIAZEPINES NEG (NEG); CANNABINOIDS NEG (NEG); COCAINE NEG (NEG); METHADONE NEG (NEG); OPIATES NEG (NEG); PHENCYCLIDINE NEG (NEG)
[2019-10-02 16:38] LABS: AMPHETAMINE/METHAMPHETAMINE NEG (NEG)
[2019-10-02] MEDS ORDERED: LORA0.5T96 PO (16:46)
[2019-10-02 17:03] VITALS: BP 169/111
[2019-10-02 17:18] LABS: POTASSIUM 2.7 mmol/L (3.5-5.1)
== END 2019-10-02 17:03 | disposition home or self-care (01) ==
LOC: ER 15:02
DX: F10.239 Alcohol dependence with withdrawal, unspecified (principal); E87.6 Hypokalemia; I10 Essential (primary) hypertension; I25.2 Old myocardial infarction; F17.210 Nicotine dependence, cigarettes, uncomplicated; Y90.0 Blood alcohol level of less than 20 mg/100 ml
CPT/HCPCS: 36415; 80053; 80307; 83735; 85025; 96374; 99285; G0480; J2060; J7030